=== PATIENT | male | born 1990 | race Caucasian/White ===

== ENCOUNTER 2021-04-08 13:35 | Emergency (ER) | payer MEDICAID ==
[~2021-04-08] VITALS: Ht 175.3 cm; Wt 77.0 kg
[2021-04-08 14:18] VITALS: BP 142/84
[2021-04-08] MEDS ORDERED: DIAZ5TAB22 PO (16:25)
== END 2021-04-08 16:52 | disposition home or self-care (01) ==
LOC: ER 13:36
DX: Z02.89 Encounter for other administrative examinations (principal); F11.10 Opioid abuse, uncomplicated
CPT/HCPCS: 99283

== ENCOUNTER 2021-12-23 14:50 | Emergency (ER) | payer MEDICAID ==
[~2021-12-23] VITALS: Ht 172.7 cm; Wt 75.0 kg
[2021-12-23 14:55] VITALS: BP 138/87
--- NOTE | 2021-12-23 16:11 | NUR ---
ATTEMPT EKG, UNABLE TO LOCATE PATIENT IN ER LOBBY OR PARKING LOT.
== END 2021-12-23 16:21 | disposition left against medical advice (07) ==
LOC: ER 14:51
DX: R07.89 Other chest pain (principal); Z53.21 Procedure and treatment not carried out due to patient leaving prior to being seen by health care provider

== ENCOUNTER → 2022-04-17 | Outpatient (CLI) | payer MEDICAID | END | disposition home or self-care (01) | LOC: CARD DIAG 13:12 | PROVIDERS: ATTEND Family Medicine | DX: I08.0 Rheumatic disorders of both mitral and aortic valves (principal) | CPT/HCPCS: 93306 ==